=== PATIENT | female | born 1960 | race Caucasian/White ===

== ENCOUNTER → 2017-01-18 | Outpatient (CLI) | payer OTHER | LOC: BMCIMAGING 11:36 | PROVIDERS: ATTEND Internal Medicine Endocrinology, Diabetes & Metabolism | DX: E89.0 Postprocedural hypothyroidism (principal) | CPT/HCPCS: 76536-PO ==

== ENCOUNTER 2017-04-02 17:47 | Emergency (ER) | payer OTHER ==
[2017-04-02 18:07] VITALS: RESP 16
--- NOTE | 2017-04-02 18:10 | EDPHY ---
H & P Time Seen by Provider: 04/02/17 18:09 HPI/ROS: Chief complaint. Leg swelling HPI. 56-year-old female with 2 day history of left lower extremity swelling. No trauma. She travels frequently for work and recently traveled this week to [place]. She has pain to her calf. No symptoms above her knee. No chest discomfort or shortness of breath. No similar symptoms previously. She also noticed a red area that is somewhat tender to the posterior left calf. No fever ROS Constitutional. no fever/chills, no weakness Eyes. no problems with vision ENT. no sore throat, no nasal drainage Cardiovascular. no chest pain Respiratory. no shortness of breath, no cough Abdominal. no abdominal pain, no nausea/vomiting, no diarrhea . no problems urinating MS. Left calf pain and swelling Skin. Erythematous area to the posterior left calf Lymph. no swollen glands Neuro. no headache, no dizziness, no difficulty walking or with speech Past Medical/Surgical History: Hypothyroid Social History: , nonsmoker, no alcohol Physical Exam: General Appearance: Alert well-developed female mild distress vital signs stable Eyes: Pupils equal and round no pallor or injection. ENT, Mouth: Mucous membranes are moist. Respiratory: There are no retractions, lungs are clear to auscultation. Cardiovascular: Regular rate and rhythm. Gastrointestinal: Abdomen is soft and nontender, no masses, bowel sounds normal. Neurological: Awake and alert, sensory and motor exams grossly normal. Skin: Warm and dry, no rashes. Musculoskeletal: Neck is supple nontender. Extremities left calf tender and slightly swollen. No findings above the knee and the knee is not involved either. There is a 4 cm erythematous patch to the posterior left calf is slightly indurated and tender Psychiatric: Patient is oriented X 3, there is no agitation. Constitutional: Initial Vital Signs Temperature (C) 36.9 C 04/02/17 18:03 Heart Rate 68 04/02/17 18:03 Respiratory Rate 16 04/02/17 18:03 Blood Pressure 139/88 H 04/02/17 18:03 O2 Sat (%) 95 04/02/17 18:03 O2 Delivery Mode Room Air Allergies/Adverse Reactions: No Known Allergies Allergy (Unverified 04/02/17 18:07) Home Medications: Medication Instructions Recorded Cephalexin [Keflex (*)] 500 mg PO TID #21 cap 04/02/17 Estradiol 04/02/17 Sulfamethox/Tmp 800/160 mg 1 tab PO BID #14 tab 04/02/17 [Bactrim Ds] Synthroid 04/02/17 Medical Decision Making - Diagnostics Imaging Results: Imaging Impressions Extremity Venous Study 04/02/17 18:02 Impression: No evidence of deep vein thrombosis in the left lower extremity. Results called to the [facility] at 6:49 PM Ultrasound reviewed by me and discussed with Dr. Flanagan shows no evidence for DVT ED Course/Re-evaluation: Re-evaluation at 7:05 p.m.. The patient and I discussed imaging study results. We discussed treatment plan including criteria for return importance of follow -up and further evaluation. She expresses understanding and agreement Differential Diagnosis: With her recent travel and leg swelling I considered DVT. She has an erythematous patch that is warm and tender. This appears to represent localized cellulitis without lymphangitis. Differential would include minor trauma or insect bite. Departure - Departure Disposition: Home, Routine, Self-Care Clinical Impression: Cellulitis Qualifiers: Site of cellulitis: extremity Site of cellulitis of extremity: lower extremity Laterality: left Qualified Code(s): L03.116 - Cellulitis of left lower limb Condition: Good Instructions: Cellulitis (ED) Additional Instructions: Elevate legs as much as possible next 24-48 hours. Bactrim and cephalexin as antibiotic. Return for worsening pain, swelling, fever. Recheck in 2 days if not improving Referrals: Guera Cali MD [Primary Care Provider] - 2-3 days, if not improved Prescriptions: Cephalexin [Keflex (*)] 500 mg PO TID #21 cap Sulfamethox/Tmp 800/160 mg [Bactrim Ds] 1 tab PO BID #14 tab
[2017-04-02] MEDS ORDERED: CEPHALEXIN 500 MG CAP PO ONE (19:23)
[2017-04-02] MEDS ORDERED: SULFAMETHOX/TMP 800/160 MG 1 TAB PO ONE (19:24)
[2017-04-02 19:28] VITALS: BP 153/89; PULSE 62; TEMP 98.2; O2SAT 96
== END 2017-04-02 19:30 | disposition home or self-care (01) ==
LOC: CED 17:47
DX: L03.116 Cellulitis of left lower limb (principal)
CPT/HCPCS: 93971-PO

== ENCOUNTER → 2017-05-30 | Outpatient (CLI) | payer OTHER | LOC: CIMAGING 13:46 | DX: I80.02 Phlebitis and thrombophlebitis of superficial vessels of left lower extremity (principal) | CPT/HCPCS: 93971-PO ==

== ENCOUNTER → 2017-10-19 | Outpatient (CLI) | payer OTHER | LOC: BMCIMAGING 12:40 | PROVIDERS: ATTEND Family Medicine | DX: Z12.31 Encounter for screening mammogram for malignant neoplasm of breast (principal); R92.8 Other abnormal and inconclusive findings on diagnostic imaging of breast | CPT/HCPCS: G0202 ==

== ENCOUNTER → 2017-11-06 | Outpatient (CLI) | payer OTHER | LOC: BMCIMAGING 09:39 | PROVIDERS: ATTEND Family Medicine | DX: R92.8 Other abnormal and inconclusive findings on diagnostic imaging of breast (principal) ==

== ENCOUNTER → 2019-01-04 | Outpatient (CLI) | payer BC | LOC: BMCIMAGING 13:28 | PROVIDERS: ATTEND Family Medicine | DX: Z12.31 Encounter for screening mammogram for malignant neoplasm of breast (principal) ==